=== PATIENT | female | born 1980 | race Caucasian/White ===

== ENCOUNTER → 2024-01-03 14:07 | Outpatient (REF) | payer OTHER, SELFPAY | LOC: WDC 14:07 | PROVIDERS: ATTENDING PHYSICIAN Obstetrics & Gynecology; FAMILY PHYSICIAN Physician Assistant Medical | DX: Z12.31 Encounter for screening mammogram for malignant neoplasm of breast (principal); R92.8 Other abnormal and inconclusive findings on diagnostic imaging of breast | CPT/HCPCS: 76642; 77063; 77067 ==

== ENCOUNTER 2024-08-16 06:10 | Day surgery (SDC) | payer OTHER, SELFPAY ==
[2024-08-16] VITALS (8 sets, daily range): BP systolic 115–125; BP diastolic 59–74; BMI 36.9
[2024-08-16] MEDS: NORMOSOL-R/PLASMALYTE-A 1000 IV (06:25)
[2024-08-16] MEDS: TYLENOL 1000 MG PO (06:25)
--- NOTE | 2024-08-16 06:32 | HP.FOC2 ---
Focused History & Physical
Chief Complaint
HPI:
Chief Complaint: Umbilical hernia
HPI / Indication for Planned Procedure: Patient is a 44-year-old with a history of periumbilical swelling that has slowly increased in size over the years and is now a bit more prominent. The swelling is always present to varying degrees.
Occasional mild discomfort but no significant pain. She has an awareness of the hernia being present. No symptoms suggestive of intermittent incarceration or obstruction. She presents today for scheduled operative correction.
Relevant Past Medical History: Negative
Relevant Social History: Negative
Relevant Family History: Negative
Relevant Past Surgical History: Positive for (Left knee arthroscopy)
Review of Systems
Review of Pertinent Systems: All Systems Negative
Medication
See Medication form for detailed medications: Yes
Medication List (including Herbals & OTC):
No Meds [No Current Medications] 08/09/24
Medications Reviewed: Yes
Allergies and Reactions
Patient has Allergies: Yes
Noted Allergies and Reactions:
Allergy/AdvReac Type Severity Reaction Status Date / Time
codeine Allergy Rash Verified 08/16/24 06:08
Penicillins Allergy Rash Verified 08/16/24 06:08
Pertinent Physical Exam
All Other Systems: Negative
Head/Neck: Normal
Lungs: Normal
Heart: Normal
Abdomen: Other (Reducible umbilical hernia, probable 2 cm fascial defect)
Extremities: Normal
Neurological: Normal
Diagnosis / Assessment
44-year-old female presenting for scheduled operative correction symptomatic umbilical hernia
Plan / Procedure
Robotic assisted laparoscopic repair umbilical hernia with mesh
Anesthesia/Sedation to be done by Anesthesia Provider: Yes
--- NOTE | 2024-08-16 06:34 | W.SUR.PREOP ---
Pre-Operative Surgical Note
-
I have examined this patient prior to the performance of the scheduled procedure.
The patient's condition is unchanged from the time of the current History and
Physical and the patient is able to undergo the scheduled procedure.
--- NOTE | 2024-08-16 08:24 | W.IMMPOSTOP ---
Surgical Immed Post Op Note
-
Primary Surgeon: Joyce
Assisting Surgeon: Jesse GARDINER
Pre-op Diagnosis: Umbilical hernia
Post-op Diagnosis: Umbilical hernia, 2 cm
Procedure Performed: Robotic assisted laparoscopic PARMINDER repair umbilical hernia with mesh; soft mesh 10 cm x 8 cm
Anesthesia Type: GETA +0.25% Marcaine mixed with 20 mL injectable sterile saline
Specimen / Cultures: None
Estimated Blood Loss: 4 mL
Complications: None immediate
Operative Findings: 2 cm umbilical hernia. Transabdominal preperitoneal repair. Closure of fascial defect with 0 PDS STRATAFIX symmetric. Underlay preperitoneal mesh placement, Bard soft mesh 10 cm x 8 cm oriented vertically. Mesh secured with
2-0 Vicryl suture x 4. Closure of peritoneal flap with 2-0 Monocryl STRATAFIX spiral. No incidental findings.
--- NOTE | 2024-08-16 08:26 | OR.RPT ---
Operative Report
Operative Report
Date of operative procedure: 08/16/2024
Primary Surgeon: Antony Cook MD
Gauger Delivery: Jesse GARDINER
Pre-op Diagnosis: Umbilical hernia
Post-op Diagnosis: Umbilical hernia, 2 cm
Procedure Performed: Robotic assisted laparoscopic PARMINDER repair umbilical hernia with mesh; Bard soft mesh 10 cm x 8 cm
Anesthesia: GETA +0.25% Marcaine mixed with 20 mL of injectable saline
Specimen / Cultures: None/none
Estimated Blood Loss: 4 mL
Complications: None immediate
Indications for Operative Procedure: Patient is a 44-year-old female with a history of periumbilical swelling that has slowly increased in size over the years and is now a bit more prominent. The swelling is always present to varying degrees.
Occasional mild discomfort but no significant pain. She has an awareness of the hernia being present. No symptoms suggestive of intermittent incarceration or obstruction. She presents today for scheduled operative correction.
I reviewed with the patient treatment options. She wished to pursue operative correction. We discussed various operative approaches to repair and elected to proceed with a robotic assisted laparoscopic umbilical herniorrhaphy with mesh. The
anticipated operative procedure was fully reviewed in detail with the patient preoperatively obtaining written informed consent. See office visit consultation for full details regarding discussions.
Brief Summary of Operative Findings: Reducible umbilical hernia, fascial defect 2 cm maximal length. Hernia defect closed with running continuous 0 PDS STRATAFIX symmetric suture. Transabdominal preperitoneal repair with flap started on left
lateral abdominal wall. Underlay bard soft mesh, 10 cm x 8 cm oriented vertically secured with interrupted 2-0 Vicryl. Peritoneal flap closed with 2-0 Monocryl STRATAFIX spiral. No additional incidental findings on cursory inspection of the
abdomen.
Operation in Detail: The patient was identified in the preoperative holding area. I confirmed the umbilical surgical site/location with the patient preoperatively. She was interviewed by the anesthesia and nursing staff then brought back to the
operating room. The patient was placed on the operating table in supine position. The bilateral upper extremities were carefully padded and tucked at the side utilizing the arm guard positioning system. Pneumatic compression boots were on the
bilateral lower extremities. Following induction of general endotracheal anesthesia the patient was administered Ancef 2 g IV for prophylactic antibiotic coverage. The patient's anterior abdominal wall was now widely and sterilely prepped with
ChloraPrep and then draped in the usual manner. The surgical time out was completed and the procedure was confirmed.
I initially proceeded with Veress needle insufflation at the left subcostal midclavicular line location. Once insufflated to 12 mmHg pressure then an 8 mm trocar was placed along the left lateral abdominal wall [facility] between the left costal
margin and the left ASIS and a palms breath out from the anticipated left lateral boarder of the mesh placement. The robotic scope was now inserted. There was no evidence of iatrogenic injury from access. The Veress needle was withdrawn. A left
subcostal lateral 8 mm trocar and a left lower quadrant 8 mm trocar just superior/medial to the ASIS were now placed under direct visualization. The patient was then transition into slight Trendelenburg and right side down to aid in exposure of the
anterior abdominal wall. The robot was then docked.
At the surgeon console inspection confirmed the presence of a reducible umbilical hernia containing preperitoneal fat, and the hernia sac peritoneal lining. There were no adhesions to it. There were no additional incidental intra-abdominal findings.
I initially began with laparoscopic guidance to infiltrate the preperitoneal plane around the right and left lateral borders of the anticipated preperitoneal pocket with a total of 20 mL of 0.25% Marcaine mixed with injectable saline. Next the
preperitoneal flap was begun by incising the peritoneum along the left lateral aspect of the central abdominal wall fat pad cranially about 5cm superior to the fascial defect. The peritoneal incision was now carried down further laterally into the
left lower quadrant in an arc like manner with preservation of the posterior sheath. The preperitoneal plane was now established along the length of the flap and developed towards the midline where the central abdominal wall fat pad was taken down
with the peritoneum superiorly and inferiorly to the fascial defect. The hernia sac and contents were now completely reduced with care to preserve the dermis of the umbilical stalk and its subcutaneous blood supply. The peritoneal flap along the
entire length was now mobilized well onto the right lateral side of the abdominal wall to allow for mesh placement with good circumferential coverage. The fascial edges were freshened circumferentially.
The umbilical fascial defect was now measured to be 2 cm in horizontal length and about 1 cm vertically. Fascial edges were confirmed to be cleared. No additional hernias in the area were noted. Defect was then closed with a running continuous 0
PDS STRATAFIX along the horizontal orientation. The suture was then run back upon itself in a reverse direction for a double layer closure and to lock the barbed suture in place. A Bard soft mesh measuring 10 cm vertically by 8 cm in width was
then introduced through the 8mm trochar. The mesh was positioned within the peritoneal flap in an underlay fashion and centered over the fascial defect to get 5 cm of coverage in all directions from the closure. The mesh was then secured centrally
to the linea alba at 2 separate locations with interrupted 2-0 Vicryl suture. The mesh was also secured at the right and left lateral borders with an additional interrupted 2-0 Vicryl sutures to the posterior sheath on either side. Hemostasis was
now assured. The left lateral margin of the peritoneal flap was closed with a running continuous 2-0 Monocryl STRATAFIX suture. The air was aspirated out of the flap with a flexible suction catheter confirming complete occlusion of the flap. The
peritoneal covering of the mesh was completely intact as well.
At this point the robot was undocked. All sponge, instrument and needle counts were confirmed to be correct x 2. The CO2 insufflation was now fully evacuated out of the abdominal cavity. The trocar sites were removed as well as the flexible
suction catheter. Skin was closed with 4-0 Monocryl. Sterile surgical glue dressings were applied. The patient tolerated the procedure well and was transferred to the recovery unit for routine postoperative monitoring. I was present for the
entirety of the operative procedure.
== END 2024-08-16 10:20 | disposition home or self-care (01) ==
LOC: SDS 06:10
PROVIDERS: ATTENDING PHYSICIAN Surgery
DX: K42.9 Umbilical hernia without obstruction or gangrene (principal)
CPT/HCPCS: 49591; C1781

== ENCOUNTER → 2025-01-08 14:16 | Outpatient (REF) | payer OTHER, SELFPAY | LOC: WDC 14:16 | PROVIDERS: ATTENDING PHYSICIAN Obstetrics & Gynecology; FAMILY PHYSICIAN Physician Assistant Medical | DX: Z12.31 Encounter for screening mammogram for malignant neoplasm of breast (principal); R92.8 Other abnormal and inconclusive findings on diagnostic imaging of breast | CPT/HCPCS: 76642; 77063; 77067 ==

== ENCOUNTER 2025-02-13 19:29 | Emergency (ER) | payer OTHER, SELFPAY ==
[2025-02-13 19:40] VITALS: BP 148/87
[2025-02-13 20:29] LABS: Hematocrit 42.7 % (37.0-47.0); Hemoglobin 14.1 g/dL (12.0-16.0); Mean Corp Hgb Conc. 33.0 g/dL (33.0-37.0); Mean Corpuscular Volume 89.1 fL (81.0-99.0); Nucleated Red Blood Cells % 0 %; Platelet Count 259 10^3/uL (130-400); Red Cell Dist. Width 12.7 % (11.5-14.5)
[2025-02-13 20:29] LABS: ALT (SGPT) 22 U/L (0-35); AST (SGOT) 29 U/L (14-36); Albumin 5.4 g/dl (3.5-5.0); Alkaline Phosphatase 60 U/L (38-126); Blood Urea Nitrogen 9 mg/dl (7-17); Calcium 10.6 mg/dl (8.4-10.2); Carbon Dioxide 25 mmol/L (22-30); Chloride 106 mmol/L (98-107); Glucose 103 mg/dl (70-99); Potassium 4.4 mmol/L (3.5-5.1); Sodium 139 mmol/L (135-145); Total Protein 8.6 g/dl (6.3-8.2); eGFR > 60.00
[2025-02-13 20:53] LABS: Troponin I < 0.012 ng/ml
[2025-02-13 22:55] VITALS: BMI 37.2
[2025-02-13 23:00] VITALS: BP 137/71
[2025-02-14 00:24] LABS: D-Dimer 0.47 ug/mlFEU (0.00-0.50)
--- NOTE | 2025-02-14 02:07 | ED.GENMED ---
History of Present Illness
General
Chief Complaint: Chest Pain
Source: patient
Exam Limitations: none
Time Seen by Provider: 02/13/25 23:14
Nursing documentation reviewed up to this point in time: agreed with
History of Present Illness
History of Present Illness:
Note:
CHIEF COMPLAINT(S)
Shortness of breath, lightheadedness, and shakiness.
HISTORY OF PRESENT ILLNESS
The patient is a 44-year-old female who presents with symptoms of shortness of breath, lightheadedness, and shakiness. Earlier today, she began experiencing a sensation of not being able to breathe adequately, feeling lightheaded and shaky. This
persisted throughout the day, even while working. She described situations where she felt as if she might pass out and felt like she wasnt getting enough oxygen, which caused her to feel panicked. Her symptoms seemed to improve somewhat following
testing. She reports feeling very tired. She denies any underlying medical problems.
PAST SURGICAL HISTORY
Underwent umbilical hernia surgery in August of this year.
SOCIAL HISTORY
Denies tobacco and drug use. Consumes one to two cups of coffee each morning.
PLAN
The plan includes conducting a D-Dimer test to rule out the possibility of a blood clot. If the test result is negative, no further action is required. If positive, a CT scan will be conducted to further investigate.
PHYSICAL EXAM
General: Alert, no acute distress.
Skin: Warm, dry.
Head: Normocephalic, atraumatic.
Neck: Supple, trachea midline.
Eye, Ears, Nose, Mouth, and Throat: Oral mucosa moist.
Cardiovascular: Normal peripheral perfusion, No edema.
Respiratory: Respirations are non-labored.
Gastrointestinal: Abdomen nondistended
Back: Normal range of motion, Normal alignment.
Musculoskeletal: Normal ROM, normal strength.
Neurological: Alert and oriented to person, place, time, and situation, No focal neurological deficit observed.
Psychiatric: Cooperative, appropriate mood & affect.
DIFFERENTIAL DIAGNOSIS
The Differential Diagnosis includes, in no particular order and is not limited to:
1. Panic disorder
2. Hyperventilation syndrome
3. Anemia
4. Hypoglycemia
5. Dehydration
6. Pulmonary embolism
7. Cardiac arrhythmia
8. Hyperthyroidism
9. Anxiety disorder
10. Vestibular dysfunction
WELLS' CRITERIA FOR DVT:
Result Summary
0 points DVT unlikely. Recommend d-dimer
Inputs:
Active cancer -> 0 = No
Bedridden recently -> 0 = No
Calf swelling >3 cm compared to the other leg -> 0 = No
Collateral (nonvaricose) superficial veins present -> 0 = No
Entire leg swollen -> 0 = No
Localized tenderness along the deep venous system -> 0 = No
Pitting edema, confined to symptomatic leg -> 0 = No
Paralysis, paresis, or recent plaster immobilization of the lower extremity -> 0 = No
Previously documented DVT -> 0 = No
Alternative diagnosis to DVT as likely or more likely -> 0 = No
Disposition:
SUMMARY OF ENCOUNTER
A 44-year-old female presented with chest pain and shortness of breath. An evaluation was done to rule out any serious cardiac or pulmonary conditions. A chest x-ray was performed and was negative for any acute findings. Additionally, an EKG was
conducted and found to be normal.
DISPOSITION
Discharge
ASSESSMENT
The main concern was chest pain with associated shortness of breath. Considering the negative chest x-ray and normal EKG, serious acute conditions were ruled out.
PLAN
The plan includes discharging the patient with instructions to follow up with her primary care physician or a curtain inspector for further evaluation if symptoms persist or worsen.
INDEPENDENT REVIEW OF LABS AND INTERPRETATION OF TESTS
- My independent interpretation of the chest x-ray is that there are no acute findings.
- My independent interpretation of the EKG is that it is normal.
PATIENT EDUCATION AND COUNSELING
The patient was advised on the importance of follow-up care and was educated to monitor symptoms and seek immediate medical care if symptoms like severe pain, sudden shortness of breath, or fainting occur.
FOLLOW-UP INSTRUCTIONS
The patient was instructed to schedule a follow-up visit with a primary care physician or curtain inspector.
MEDICAL DECISION MAKING
-Complexity of Data Reviewed: The nature of chest pain and shortness of breath prompted consideration of serious conditions. Differential diagnosis included: Panic disorder, Hyperventilation syndrome, Anemia, Hypoglycemia, Dehydration, Pulmonary
embolism, Cardiac arrhythmia, Hyperthyroidism, Anxiety disorder, Vestibular dysfunction.
- Data:
Category 1: EKG and chest x-ray were reviewed and interpreted independently.
-Risk: Consideration of Admission/Observation: Escalation of care including admission/observation was considered given the complexity and risk of the patients presenting complaint, chest pain, and shortness of breath. However, ultimately I feel the
patient is safe for outpatient management with close follow-up. Reasoning: Work-up reassuring, does not reveal any acute life/organ threatening processes, patients symptoms well controlled upon reevaluation, reexamination is reassuring, vitals are
stable, patient agreeable with discharge, reliable for follow-up.
DIAGNOSIS
- Chest pain, unspecified (ICD-10: R07.9)
Course
Orders/Labs/Results
Orders:
Orders
02/13/25 19:31
Electrocardiogram (*1) Urgent
Reason for Study: Chest Pain
EKG- Treatment ONCE
02/13/25 20:06
Comprehensive Metabolic Panel Urgent
02/13/25 20:19
Complete Blood Count/With Diff Urgent
NT-proBNP Urgent
Troponin I Urgent
02/13/25 23:53
D-Dimer Urgent
02/14/25 01:39
CR Chest - 2 Views Urgent
Comment:
Reason For Exam: cp
Abnormal Lab Results
02/13/25
20:06
Glucose 103 H mg/dl
(70-99)
Calcium 10.6 H mg/dl
(8.4-10.2)
Total Protein 8.6 H g/dl
(6.3-8.2)
Albumin 5.4 H g/dl
(3.5-5.0)
02/13/25 20:19
02/13/25 20:06
Vital Signs
Initial and Last Documented VS:
Initial Vital Signs
Temp Pulse Resp BP Pulse Ox
98.6 F 79 18 148/87 100
02/13/25 19:40 02/13/25 19:40 02/13/25 19:40 02/13/25 19:40 02/13/25 19:40
Last Documented Vital Signs
Temp Pulse Resp BP Pulse Ox
98.6 F 70 14 137/71 100
02/13/25 19:40 02/14/25 01:30 02/14/25 01:30 02/13/25 23:00 02/14/25 02:09
*Pulse Oximetry
SaO2: 100
Oxygen Mode of Delivery: Room air
Patient hypoxic: no
*Critical Care Note
Total Time (30-74mins, 75-104mins- exclusive of procedures): Not Applicable
Update Note
Update Note:
EKG shows normal sinus rhythm rate 81 with normal intervals, left axis deviation no evidence of acute ischemia. No old EKG available for comparison.
ED Attending Note
-
Portions of this chart may have been created with voice recognition software.� Occasional wrong word or��sound alike� substitutions may have occurred due to the inherent limitations of voice recognition software.
Discharge Plan
Departure
Patient Disposition: Home (Routine Discharge)
Date of Disposition: 02/14/25
Time of Disposition: 02:08
Patient with high blood pressure during this ER visit?: Yes
Condition: Good
Discharge Problem:
Chest pain
Instructions: Chest Pain PCP Follow Up, BLOOD PRESSURE
Prescriptions:
No Action
acetaminophen [Tylenol Extra Strength] 500 mg tablet
1,000 mg PO Q6HPRN PRN (Reason: mild pain) Qty: 1 0RF
ibuprofen 200 mg tablet
400 - 600 mg PO Q6HPRN PRN (Reason: moderate pain) Qty: 1 0RF
polyethylene glycol 3350 [Miralax] 17 gram/dose powder
4 g PO DAILY PRN (Reason: Constipation) Qty: 119 0RF
Rx Instructions:
start a laxative such as MIRALAX on day 2 after surgery if no bowel movement yet as long as no nausea/vomiting and passing gas
oxycodone 5 mg tablet
5 mg PO Q4HPRN PRN (Reason: breakthrough/severe pain) Qty: 7 0RF
Referrals:
Evelin Lundberg PA-C [Family Provider, Family Practice]
Interventions
Interventions:
*Risk Screen - Suicide Last Done: 02/13/25 19:40
*General Assessment Last Done: 02/13/25 22:56
*Neglect/Abuse Screening Last Done: 02/13/25 19:40
*ED- Fall Risk Assessment Last Done: 02/13/25 22:56
*ED COVID-19 Vaccine History Last Done: 02/13/25 22:56
ED- Cardiac Assessment Last Done: 02/13/25 22:56
Discharge Date and Time
Print Language: LATVIAN
== END 2025-02-14 02:21 | disposition home or self-care (01) ==
LOC: EMR 19:29
PROVIDERS: Emergency Medicine; EMERGENCY PHYSICIAN Student in an Organized Health Care Education/Training Program; FAMILY PHYSICIAN Physician Assistant Medical
DX: R07.9 Chest pain, unspecified (principal); R06.02 Shortness of breath; R42 Dizziness and giddiness
CPT/HCPCS: 99285; 71046; 80053; 83880; 84484; 85025; 85379; 93005